=== PATIENT | female | born 1940 | race Caucasian/White ===

== ENCOUNTER 2020-01-14 12:06 | Emergency (ER) | payer MEDICARE, OTHER ==
[2020-01-14 14:27] LABS: BASOPHILS % (AUTO) 0.3 % (0.0-5.0); EOSINOPHILS % (AUTO) 0.5 % (0.0-8.0); HEMATOCRIT 38.8 % (36-48); LYMPHOCYTES % (AUTO) 9.7 % (21.0-51.0); MEAN CORPUSCULAR HEMOGLOBIN 28.8 pg (27.0-33.0); MEAN CORPUSCULAR HGB CONC 31.7 g/dL (32.0-36.0); MEAN CORPUSCULAR VOLUME 90.9 fL (79-99); MONOCYTES % (AUTO) 7.5 % (3.0-13.0); NEUTROPHILS % (AUTO) 81.4 % (40.0-77.0); PLATELET COUNT (AUTO) 149 K/uL (130-400); RED BLOOD CELL COUNT(AUTO) 4.27 MIL/uL (4.00-5.50); RED CELL DISTRIBUTION WIDTH 13.2 % (11.0-15.5); WHITE BLOOD COUNT (AUTO) 9.5 K/uL (4.8-10.8)
[2020-01-14 14:40] LABS: INR 0.95 (0.85-1.15); PARTIAL THROMBOPLASTIN TIME 23.3 SEC (26.3-35.5); PROTHROMBIN TIME 10.3 SEC (9.6-11.6)
[2020-01-14 14:44] LABS: CREATININE 0.7 mg/dL (0.5-1.5)
[2020-01-14 14:48] LABS: ALBUMIN 3.7 g/dL (3.5-5.0); BILIRUBIN,TOTAL 0.8 mg/dL (0.2-1.0); CRP QUANTITATIVE 7.1 mg/L (0.00-9.0); MAGNESIUM 2.3 mg/dL (1.80-2.40); TOTAL PROTEIN, SERUM 6.9 g/dL (6.0-8.3)
[2020-01-14 15:13] LABS: APPEARANCE,URINE CLOUDY (CLEAR); BILIRUBIN,URINE NEGATIVE (NEGATIVE); COLOR,URINE YELLOW (YELLOW); GLUCOSE, URINE (UA) NEGATIVE (NEGATIVE); KETONES,URINE NEGATIVE (NEGATIVE); LEUKOCYTE ESTERASE ,URINE NEGATIVE (NEGATIVE); NITRATE,URINE NEGATIVE (NEGATIVE); OCCULT BLOOD,URINE NEGATIVE (NEGATIVE); PROTEIN,URINE NEGATIVE (NEGATIVE); UROBILINOGEN,URINE 0.2 mg/dL (0.2-1.0)
[2020-01-14 15:21] LABS: AMORPHOUS SEDIMENT,UR Moderate /LPF (None Seen); BACTERIA,URINE Few /HPF (None Seen); RBC,URINE 0-1 /HPF (0-1); SQUAMOUS EPITHELIAL CELL,UR Rare /HPF (0-2); WBC,URINE 0-1 /HPF (0-1)
== END 2020-01-14 18:18 | disposition home or self-care (01) ==
LOC: EDH 12:06
DX: S52.002A Unspecified fracture of upper end of left ulna, initial encounter for closed fracture (principal); S20.219A Contusion of unspecified front wall of thorax, initial encounter; S50.312A Abrasion of left elbow, initial encounter; K59.00 Constipation, unspecified; Z20.828 Contact with and (suspected) exposure to other viral communicable diseases; E78.5 Hyperlipidemia, unspecified; F41.9 Anxiety disorder, unspecified; E78.00 Pure hypercholesterolemia, unspecified; W01.0XXA Fall on same level from slipping, tripping and stumbling without subsequent striking against object, initial encounter; Y93.89 Activity, other specified; Y92.481 Parking lot as the place of occurrence of the external cause; Y99.8 Other external cause status
CPT/HCPCS: 29105; 36415; 71250; 73200; 74176; 80053; 81001; 82550; 83735; 84484; 85025; 85610; 85730; 86140; 87426; 93005; 99285; U0003